=== PATIENT | female | born 1955 | race Asian ===

== ENCOUNTER 2018-01-04 07:56 | Outpatient (CLI) | payer BC ==
--- NOTE | 2018-01-04 09:12 | RAD ---
PA AND LATERAL CHEST: History: Dyspnea. Comparison: 03-03-16 FINDINGS: Heart size is borderline. Mediastinal structures appear unremarkable. The lungs appear clear of any i nfiltrates. There are arthritic changes of the spine. IMPRESSION: Stable chest. POS: [facility]
== END 2018-01-04 07:57 | disposition home or self-care (01) ==
LOC: RAD 07:56
PROVIDERS: ATTEND Internal Medicine Critical Care Medicine
DX: R06.00 Dyspnea, unspecified (principal)
CPT/HCPCS: 71046

== ENCOUNTER 2018-07-31 12:08 | Outpatient (CLI) | payer MEDICARE, BC ==
--- NOTE | 2018-07-31 13:13 | RAD ---
THREE VIEW LEFT FOOT: Indication: Left foot pain. FINDINGS: No fracture or dislocation of the left foot. There is mild scattered osseous degenerative change. Sof t tissues are grossly unremarkable. IMPRESSION: No acute osseous abnormality of the left foot. POS: [facility]
== END 2018-07-31 12:09 | disposition home or self-care (01) ==
LOC: SCSRAD 12:08
PROVIDERS: ATTEND Family Medicine
DX: M79.672 Pain in left foot (principal)

== ENCOUNTER 2018-12-26 15:24 | Outpatient (CLI) | payer MEDICARE, BC ==
--- NOTE | 2018-12-26 16:52 | RAD ---
CERVICAL SPINE SEVEN VIEWS: 12/26/18 COMPARISON: None. HISTORY: Neck pain. FINDINGS: Images include neutral lateral, flexion lateral and extension lateral imaging as well as frontal imag ing, bilateral oblique images and open mouth odontoid view. The neutral lateral examination demonstrates no anterolisthesis or retrolisthesis. There is mild mult ilevel disc space narrowing and anterior osteophyte formation within the cervical spine, most promine nt at C2-3, C5-6 and C6-7. The flexion imaging and extension imaging demonstrate no significant anter olisthesis or retrolisthesis. Frontal imaging demonstrates multilevel mid cervical spine bilateral facet and uncovertebral osteophy te formation, most prominent on the left at C4-5 and C5-6. Oblique imaging demonstrates no significant osteophyte encroachment on the neural foramina on either side at any level. Open mouth odontoid view is grossly unremarkable but limited secondary to overlyin g osseous structures and dental amalgam. IMPRESSION: Cervical spine degenerative changes as detailed above. No acute osseous abnormality. POS: [facility]
== END 2018-12-26 15:25 | disposition home or self-care (01) ==
LOC: SCSRAD 15:24
PROVIDERS: ATTEND Internal Medicine Rheumatology
DX: M54.2 Cervicalgia (principal); M47.812 Spondylosis without myelopathy or radiculopathy, cervical region
CPT/HCPCS: 72052

== ENCOUNTER 2018-12-28 10:54 | Outpatient (CLI) | payer MEDICARE, BC ==
--- NOTE | 2018-12-28 13:33 | RAD ---
THORACIC SPINE 3 VIEWS: Date: 12/28/18 HISTORY: Pain, upper back pain and neck pain for several weeks. Exam includes AP and flexion and extension lateral views of the thoracic spine. FINDINGS: There is extensive multilevel disc osteophytosis. No evidence for abnormal translation between flexio n and extension. No evidence for acute fracture or dislocation. IMPRESSION: Spondylosis. No abnormal translation. POS: [facility]
== END 2018-12-28 10:55 | disposition home or self-care (01) ==
LOC: SCSRAD 10:54
PROVIDERS: ATTEND Internal Medicine Rheumatology
DX: M54.6 Pain in thoracic spine (principal); M47.814 Spondylosis without myelopathy or radiculopathy, thoracic region
CPT/HCPCS: 72072

== ENCOUNTER 2019-04-24 09:44 | Outpatient (CLI) | payer MEDICARE, BC ==
--- NOTE | 2019-04-24 10:04 | RAD ---
EXAM: Two views chest PROVIDED CLINICAL HISTORY: Dyspnea COMPARISON: 01/04/2018 FINDINGS: Cardiac and mediastinal silhouette appears within normal limits. Lungs appear free of significant opa city. No pleural fluid or pneumothorax apparent. IMPRESSION: No evidence for an acute cardiopulmonary process.
== END 2019-04-24 09:45 | disposition home or self-care (01) ==
LOC: RAD 09:44
PROVIDERS: ATTEND Internal Medicine Critical Care Medicine
DX: R06.00 Dyspnea, unspecified (principal)
CPT/HCPCS: 71046

== ENCOUNTER 2022-08-02 09:36 | Outpatient (CLI) | payer MEDICARE, BC | END 2022-08-02 09:37 | disposition home or self-care (01) | LOC: RAD 09:36 | PROVIDERS: ATTEND Internal Medicine Critical Care Medicine | DX: R06.00 Dyspnea, unspecified (principal) | CPT/HCPCS: 71046 ==